=== PATIENT | male | born 1930 | race Caucasian/White ===

== ENCOUNTER 2019-09-15 00:53 | Inpatient (IN) ==
[2019-09-15] MEDS ORDERED: *HR* HYDROmorphone (PF) 1 MG/ML SYRINGE IVP ONE (02:00)
[2019-09-15] MEDS ORDERED: Ondansetron 4 MG/2 ML VIAL IVP ONE ×2 (02:00→10:35)
[2019-09-15 02:34] LABS: Basophils % 0.2 %; Eosinophils # 0.1 K/mcL (0.0-0.6); Eosinophils % 0.4 %; Hematocrit 37.6 % (37.5-50.1); Immature Granulocytes % 0.4 % (0-4); Lymphocytes # 1.7 K/mcL (0.6-4.6); Lymphocytes % 10.9 %; Mean Corpuscular HGB Conc 31.9 g/dL (31.6-35.5); Mean Corpuscular Hemoglobin 31.7 pg (28.0-33.3); Mean Corpuscular Volume 99.2 fL (83.0-100.0); Mean Platelet Volume 10.5 fL (9.4-12.4); Monocytes # 0.9 K/mcL (0.0-1.3); Monocytes % 5.5 %; Neutrophils # 12.9 K/mcL (1.6-8.9); Platelet Count 245 K/mcL (140-400); Red Blood Count 3.79 M/mcL (4.19-5.50); Red Cell Distribution Width 14.2 % (11.5-14.5); Segmented Neutrophils % 82.6 %; White Blood Count 15.6 K/mcL (4.3-11.1)
[2019-09-15 02:39] LABS: Prothrombin Time 11.7 Seconds (9.4-12.1)
[2019-09-15 02:41] LABS: Activated Partial Thrombo Time 30.3 Seconds (26.0-36.0)
[2019-09-15 02:55] LABS: Albumin 4.1 g/dL (3.5-5.7); Albumin/Globulin Ratio 1.6 (1.1-2.2); Bilirubin,Total 0.3 mg/dL (0.3-1.0); Calcium 9.2 mg/dL (8.6-10.3); Globulin 2.6 g/dL (2.4-3.5); Potassium 4.5 mEq/L (3.5-5.1); Total Protein 6.7 g/dL (6.4-8.9)
[2019-09-15] MEDS ORDERED: Ondansetron 4 MG/2 ML VIAL IVP PRN (03:30)
[2019-09-15] MEDS ORDERED: Naloxone 0.4 MG/ML INJ IVP PRN (03:30)
[2019-09-15] MEDS ORDERED: 0.9 % Sodium Chloride 1,000 ML IVC SCH (03:30)
[2019-09-15] MEDS ORDERED: *HR* Dextrose 50 % in Water (Syg) 50 ML SYRINGE IVP PRN (03:54)
[2019-09-15] MEDS ORDERED: D5% in Water 1,000 ML IVC PRN (03:54)
[2019-09-15] MEDS ORDERED: Dextrose Gel 15 GM/37.5 ML TUBE PO PRN ×2 (03:54)
[2019-09-15 04:32] LABS: Bilirubin,Urine Negative (Negative); Blood,Urine Negative (Negative); Clarity,Urine Clear (Clear); Color,Urine Yellow (Yellow); Glucose,Urine (UA) Normal (Normal); Ketones,Urine Negative (Negative); Leukocyte Esterase,Urine Negative (Negative); Nitrite,Urine Negative (Negative); PH,Urine 5.5 pH Units (5.0-8.0); Protein,Urine Negative (Neg-Trace); Specific Gravity,Urine 1.017 (1.010-1.025); Urobilinogen,Urine Normal (Normal)
[2019-09-15] MEDS: Insulin LISPRO 300 UNITS/3 ML VIAL SQ SCH ×3 (06:05→16:48)
[2019-09-15] MEDS: atenoloL 50 MG TABLET PO SCH (08:24)
[2019-09-15] MEDS ORDERED: Lidocaine -MPF 2% 2 ML VIAL ONE (09:19)
[2019-09-15] MEDS ORDERED: *HR* FentaNYL (PF) 100 MCG/2 ML VIAL ONE ×2 (09:19→09:59)
[2019-09-15] MEDS ORDERED: Ondansetron 4 MG/2 ML VIAL ONE (09:19)
[2019-09-15] MEDS ORDERED: *HR* Succinylcholine 200 MG/10 ML VIAL IVP ONE (09:19)
[2019-09-15] MEDS ORDERED: *HR* Propofol 200 MG/20 ML VIAL IVP ONE (09:19)
[2019-09-15] MEDS ORDERED: *HR* Vasopressin 20 UNIT/ML VIAL ONE (09:27)
[2019-09-15] MEDS ORDERED: *HR* PHENYLEPHRINE 1,000 MCG/10 ML SYRINGE IVP ONE (09:44)
[2019-09-15] MEDS ORDERED: Dexamethasone 4 MG/ML VIAL ONE (10:01)
[2019-09-15] MEDS ORDERED: *HR* OxyCODONE Immed Rel 5 MG TABLET PO PRN (10:35)
[2019-09-15] MEDS ORDERED: *HR* HYDROmorphone PF 0.5 MG/0.5 ML SYRINGE IVP PRN (10:35)
[2019-09-15] MEDS ORDERED: *HR* Labetalol 20 MG/4 ML SYRINGE IVP PRN (10:35)
[2019-09-15] MEDS ORDERED: Acetaminophen IV 1,000 MG/100 ML INFUS..BTL IVPB ONE (10:35)
[2019-09-15] MEDS ORDERED: Ethanol\\Acetic Acid\\Na Ace\\Ben 1,000 ML IRRIG.SOLN IR ONE (10:36)
[2019-09-15] MEDS ORDERED: *HR* HYDROMORPHONE 2 MG/ML VIAL ONE (10:52)
[2019-09-15] MEDS: allopurinoL 300 MG TABLET PO SCH (15:27)
[2019-09-15] MEDS: lisinopriL 20 MG TABLET PO SCH (15:27)
[2019-09-15] MEDS: *HR* Heparin 5,000 UNIT/ML VIAL SQ SCH (17:32)
[2019-09-15] MEDS ORDERED: Menthol 9.1 MG LOZENGE PO PRN (20:25)
[2019-09-15] MEDS ORDERED: lisinopriL 10 MG TABLET PO SCH (21:00)
[2019-09-15] MEDS ORDERED: Insulin LISPRO 300 UNITS/3 ML VIAL SQ SCH (21:00)
[2019-09-16 02:54] LABS: Basophils % 0.1 %; Hematocrit 32.9 % (37.5-50.1); Hemoglobin 10.6 g/dL (12.9-16.9); Immature Granulocytes % 0.5 % (0-4); Lymphocytes # 2.1 K/mcL (0.6-4.6); Lymphocytes % 10.6 %; Mean Corpuscular HGB Conc 32.2 g/dL (31.6-35.5); Mean Corpuscular Hemoglobin 31.6 pg (28.0-33.3); Mean Corpuscular Volume 98.2 fL (83.0-100.0); Mean Platelet Volume 10.7 fL (9.4-12.4); Monocytes # 1.4 K/mcL (0.0-1.3); Monocytes % 7.2 %; Neutrophils # 16.1 K/mcL (1.6-8.9); Platelet Count 245 K/mcL (140-400); Red Blood Count 3.35 M/mcL (4.19-5.50); Segmented Neutrophils % 81.6 %; White Blood Count 19.7 K/mcL (4.3-11.1)
[2019-09-16 03:13] LABS: Calcium 9.2 mg/dL (8.6-10.3); Potassium 5.1 mEq/L (3.5-5.1)
[2019-09-16] MEDS: *HR* Heparin 5,000 UNIT/ML VIAL SQ SCH ×2 (06:05→17:46)
[2019-09-16] MEDS: atenoloL 50 MG TABLET PO SCH (07:43)
[2019-09-16] MEDS: allopurinoL 300 MG TABLET PO SCH (07:43)
[2019-09-16] MEDS: lisinopriL 20 MG TABLET PO SCH (07:43)
[2019-09-16] MEDS: Insulin LISPRO 300 UNITS/3 ML VIAL SQ SCH ×3 (07:44→17:38)
[2019-09-16 15:03] VITALS: BP 181/79
== END 2019-09-16 19:41 | disposition home or self-care (01) | DRG 481 ==
LOC: 3ANU 00:53 → EMEROOARM 00:53 → 3ANU 04:23 → SUATTDRO 12:22
PROVIDERS: ADMIT Internal Medicine; ATTEND Internal Medicine